=== PATIENT | male | born 1975 | race Caucasian/White ===

== ENCOUNTER 2022-12-16 00:32 | Emergency (ER) | payer SELFPAY ==
[2022-12-16 00:40] VITALS: BP 138/88; PULSE 82; RESP 16; TEMP 36.5; O2SAT 97
--- NOTE | 2022-12-16 00:54 | ED.GENADUL_ITS ---
Discharge Plan Disposition Patient Disposition: Home Condition: Stable Discharge Details Clinical Impression: Dog bite of right forearm ED Provider: Chris Blancas Home Meds and New Rx's Prescriptions: New amoxicillin-pot clavulanate 875-125 mg tablet 1 tab PO BID Qty: 14 0RF Continued albuterol 90 mcg/actuation Aerosol 90 mcg INHALATION PRN PRN fluticasone propion-salmeterol [Advair HFA] 45-21 mcg/actuation Hfa Aerosol Inhaler 45 puff INHALATION PRN PRN Discharge Instructions Instructions: Animal Bite (ED) Additional Instructions: keep the wound covered with a bandage until there is scar tissue covering the wound if you have severe pain, yellow/white discharge from the wound or spreading redness from the wound return to the emergency department Medical Decision Making 47 yo male comes in after one of his dogs who is current on it's vaccines per patient bit him in the right forearm when he was trying to seperate the dog from another dog. Denies falling or other injuries. He has a 2cm superficial laceration to the mid right anterior forearm. There is no bleeding on arrival, has intact distal sensation and pulses. Discussed risks of infection with closing with sutures and he would like to defer sutures and let it heal by secondary intention. He states he had a dog bite last year and was placed on augmentin and tolerated without issues, states his amoxicillin allergy was when he was a kid he'd sometimes get nausea with amoxicillin. Will start on augmentin, return precautions given. Nursing will irrigate the wound and place dressing prior to discharge and patient's tetanus was updated while he was here. Differential Diagnosis Differential Diagnosis: dog bite, laceration HPI General Mode of arrival: ambulatory . Date/Time Provider Initiated Documentation: 12/16/22 00:34 . Limitations to Documentation: no limitations . Information obtained by: patient . History of Present Illness 47 year old M presents to the emergency department with the chief complaint of dog bite right forearm, described as mild, Patient started experiencing this hour(s) (3) and it has been constant. No relieving factors improve symptom(s), No exacerbating factors reported . Patient notes no other symptoms.. Patient did receive the following treatments prior to arrival, none Related Data Home Medications Medication Instructions Recorded Confirmed albuterol 90 mcg/actuation aerosol 90 mcg inhalation PRN PRN 12/16/22 12/16/22 inhaler amoxicillin 875 mg-potassium 1 tab PO BID #14 tabs 12/16/22 clavulanate 125 mg tablet fluticasone propionate 45 45 puff inhalation PRN PRN 12/16/22 12/16/22 mcg-salmeterol 21 mcg/actuation HFA inhaler (Advair HFA) Previous Rx's Medication Instructions Recorded amoxicillin 875 mg-potassium 1 tab PO BID #14 tabs 12/16/22 clavulanate 125 mg tablet Allergies Allergy/AdvReac Type Severity Reaction Status Date / Time amoxicillin AdvReac Unverified 12/16/22 00:48 General Stated Complaint: AnimalBite WILLIS: 4 Review of Systems All systems reviewed & are unremarkable except as noted in HPI and below Constitutional Constitutional: Denies chills, Denies fever(s) and Denies weakness Cardiovascular Cardiovascular: Denies chest pain and Denies dyspnea Respiratory Respiratory: Denies cough and Denies dyspnea Gastrointestinal Gastrointestinal: Denies abdominal pain, Denies nausea and Denies vomiting Integumentary/Breasts Skin/Breast: Denies rash Neurologic Neurologic: Denies weakness PFSH All Active Problems (Updated 12/16/22 @ 00:57 by Chris Blancas MD) Dog bite of right forearm (Acute) Social History Smoking/Tobacco Use Status: Never Smoking risk assessment performed?: Yes Alcohol Intake: current Drug use: Daily Substance use type: marijuana Do you feel safe at home: Yes Do you feel safe in your relationship?: Yes Exam Const General: no acute distress Orientation: alert HENMT Head: normal to inspection Ears: external ears normal General nose exam: external nose normal Mouth: moist mucous membranes Eyes General: appearance normal, both eyes and all related structures Neck Neck: normal visual inspection Resp Effort & Inspection: normal respiratory effort and able to speak in complete sentences Cardio Rate: regular rate Skin General skin exam: no rashes or lesions noted Neuro General: patient alert and patient oriented x3 Extrem General: full ROM and capillary refill normal Psych Mental Status: mental status grossly normal Course Vital Signs Vital signs: Vital Signs Temperature 36.5 C 12/16/22 00:40 Pulse 82 12/16/22 00:40 Respiratory Rate 16 12/16/22 00:40 Blood Pressure 138/88 12/16/22 00:40 Pulse Oximetry 97 12/16/22 00:40 Temperature 36.5 C 12/16/22 00:40 Temperature Source Temporal Artery Scan 12/16/22 00:40 Pulse 82 12/16/22 00:40 Respiratory Rate 16 12/16/22 00:40 Respiratory Effort Normal, Non-Labored 12/16/22 00:53 Blood Pressure 138/88 12/16/22 00:40 Blood Pressure Position Sitting 12/16/22 00:40 Pulse Oximetry 97 12/16/22 00:40 Oxygen Delivery Method Room Air 12/16/22 00:40 Oxygen Flow Rate 0 12/16/22 00:40 Pain Level 6 12/16/22 00:40
[2022-12-16] MEDS: Amoxicillin 875/Clav. 125 TAB PO (01:21)
[2022-12-16] MEDS: Tetanus & Diphtheria Tox,ADULT 0.5 ML VIAL IM (01:21)
[2022-12-16 01:23] VITALS: BP 132/80; PULSE 78; RESP 14; O2SAT 98
--- NOTE | 2022-12-16 01:24 | NUR.NOTE ---
Wound was cleansed per best practice with warm tap water and mild soap, wound covered with telfa and kerlix with instruction to keep covered the first 24 hours, no ointments, allow wound to drain, and watch for signs of infection, MARIA A
--- NOTE | 2022-12-16 01:31 | NUR.NOTE ---
Animal bite form e-mailed to [email or web address] Nursing Note:
[2022-12-16] MEDS: Ibuprofen 600 MG TAB PO (01:33)
== END 2022-12-16 01:36 | disposition home or self-care (01) ==
LOC: ER 01:55
PROVIDERS: Emergency Provider Emergency Medicine
DX: S51.851A Open bite of right forearm, initial encounter (principal); W54.0XXA Bitten by dog, initial encounter
CPT/HCPCS: 90471; 99283; 99284